=== PATIENT | female | born 1965 | race Caucasian/White ===

== ENCOUNTER 2018-03-04 12:29 | Inpatient (IN) | payer OTHER ==
[~2018-03-04] VITALS: Ht 160 cm; Wt 49.9 kg
[2018-03-04] MEDS ORDERED: ADULT ASPIRIN R81 MG PO (12:57)
[2018-03-04] MEDS ORDERED: LIPITOR10 MG PO (12:58)
[2018-03-04] MEDS ORDERED: VITAMIN D1000 UNI1 PO (12:58)
[2018-03-04] MEDS ORDERED: NEXIUM40 MG PO (12:59)
[2018-03-04] MEDS ORDERED: ESTRACE2 M3 PO (13:00)
[2018-03-04] MEDS ORDERED: NEURONTIN600 MG PO (13:05)
[2018-03-04] MEDS ORDERED: GLUCOSAMINE HC500 MG PO (13:06)
[2018-03-04] MEDS ORDERED: AMARYL4 MG PO (13:06)
[2018-03-04] MEDS ORDERED: LANTUS100 UNIT/M SUBQ (13:07)
[2018-03-04] MEDS ORDERED: JANUMET XR 1001 EACH PO (13:08)
[2018-03-04] MEDS ORDERED: LISINOPRIL5 MG PO (13:09)
[2018-03-04] MEDS ORDERED: PROGESTERONE100 MG PO (13:10)
[2018-03-04] MEDS ORDERED: ZOLOFT100 MG PO (13:11)
[2018-03-04] MEDS ORDERED: ZANAFLEX4 MG PO (13:12)
[2018-03-04 17:00] VITALS: BP 114/69
[2018-03-04] MEDS ORDERED: NOVOLOG100 UNIT/1 SUBQ (17:51)
[2018-03-04 20:00] VITALS: BP 134/65
[2018-03-05 04:41] LABS: HEMATOCRIT 33.2 % (37.0-47.0); HEMOGLOBIN 10.6 gm/dL (12.0-15.0); MCH 24.4 pg (26.0-34.0); MPV 7.7 fl. (7.2-11.1); RBC 4.37 mil/uL (4.20-5.00); RDW-CV 17.4 % (10.5-14.5); WBC 9.2 thou/uL (4.0-11.0)
[2018-03-05 04:52] LABS: CALCIUM 9.7 mg/dL (8.5-10.1); CREATININE 0.7 mg/dL (0.6-1.3); POTASSIUM 4.9 mmol/L (3.5-5.1)
[2018-03-05 08:00] VITALS: BP 119/70
[2018-03-05 20:30] VITALS: BP 128/74
[2018-03-06 08:12] VITALS: BP 109/65
[2018-03-06 20:45] VITALS: BP 108/64
[2018-03-07 07:50] VITALS: BP 105/66
[2018-03-07 20:11] VITALS: BP 119/69
[2018-03-08 08:09] VITALS: BP 107/65
[2018-03-08 20:14] VITALS: BP 115/76
[2018-03-09 07:58] VITALS: BP 122/79
[2018-03-09 19:30] VITALS: BP 110/70
[2018-03-10 08:00] VITALS: BP 99/55
[2018-03-10 20:39] VITALS: BP 116/72
[2018-03-11 08:00] VITALS: BP 110/65
[2018-03-11 21:22] VITALS: BP 119/74
[2018-03-12 08:00] VITALS: BP 114/67
[2018-03-12 08:10] VITALS: BP 114/67
[2018-03-12 13:25] LABS: URINE BILIRUBIN NEGATIVE (Negative); URINE BLOOD 1+ (Negative); URINE CLARITY CLOUDY; URINE COLOR YELLOW; URINE GLUCOSE-RANDOM NEGATIVE (Negative); URINE KETONES NEGATIVE (Negative); URINE NITRITE-REFLEX NEGATIVE (Negative); URINE PROTEIN TRACE (Negative); URINE UROBILINOGEN 0.2 E.U./dl (0.2-1.0)
[2018-03-12 13:28] LABS: URINE LEUKOCYTES-REFLEX 3+ (Negative)
[2018-03-12 13:39] LABS: BACTERIA-REFLEX 1-9 Few /HPF (None Seen); CASTS None Seen /LPF (None Seen); MUCUS 0-3 Light strn/LPF (None Seen); SQUAMOUS 4-10 Moderate /LPF (0-3); URINE WBC-REFLEX >25 Many /HPF (0-5)
[2018-03-12 13:40] LABS: CRYSTALS None Seen /LPF (None Seen)
[2018-03-12 20:38] VITALS: BP 105/64
[2018-03-13 07:30] VITALS: BP 101/41
[2018-03-13 18:30] VITALS: BP 131/76
[2018-03-13 20:00] VITALS: BP 126/81
[2018-03-14 07:30] VITALS: BP 112/64
[2018-03-14 20:33] VITALS: BP 120/72
[2018-03-15 08:19] VITALS: BP 137/83
[2018-03-15 20:27] VITALS: BP 105/71
[2018-03-16 08:14] VITALS: BP 116/62
[2018-03-16 19:49] VITALS: BP 112/59
[2018-03-17 08:02] VITALS: BP 119/59
[2018-03-17 19:30] VITALS: BP 108/64
[2018-03-18 07:51] VITALS: BP 105/56
[2018-03-18 19:30] VITALS: BP 118/76
[2018-03-19 08:32] VITALS: BP 134/68
[2018-03-19 20:24] VITALS: BP 112/70
[2018-03-20 07:44] VITALS: BP 111/63
[2018-03-20 08:13] VITALS: BP 111/63
[2018-03-20 20:35] VITALS: BP 114/67
[2018-03-21 08:26] VITALS: BP 113/49
[2018-03-21 19:30] VITALS: BP 129/72
[2018-03-22 08:05] VITALS: BP 108/56
[2018-03-22 13:05] LABS: URINE BILIRUBIN NEGATIVE (Negative); URINE BLOOD NEGATIVE (Negative); URINE CLARITY CLEAR; URINE COLOR YELLOW; URINE GLUCOSE-RANDOM NEGATIVE (Negative); URINE KETONES NEGATIVE (Negative); URINE LEUKOCYTES-REFLEX NEGATIVE (Negative); URINE NITRITE-REFLEX NEGATIVE (Negative); URINE PROTEIN NEGATIVE (Negative); URINE SPECIFIC GRAVITY <= 1.005 (1.005-1.030); URINE UROBILINOGEN 0.2 E.U./dl (0.2-1.0)
[2018-03-22 19:30] VITALS: BP 108/65
[2018-03-23 07:54] VITALS: BP 113/68
[2018-03-23 15:40] VITALS: BP 113/68
[2018-03-23 19:58] VITALS: BP 135/72
[2018-03-23 22:56] VITALS: BP 113/68
[2018-03-23] MEDS ORDERED: METFORMIN HCL500 M1 PO (23:11)
[2018-03-23] MEDS ORDERED: OXYBUTYNIN 5 MG5 M2 PO (23:12)
[2018-03-24 07:59] VITALS: BP 120/49
[2018-03-24 08:47] VITALS: BP 120/49
--- NOTE | 2018-04-14 11:20 | PLAN ---
[address] [address] REHAB UNIT PLAN OF CARE Name: BENNY CHAPARRO Room: [address]#: [id number] Admission: 03/04/18 Attend Phys: Becky Elliott DO Discharge: 03/24/18 Date of : 65 Report #: [id number] THIS REPORT FOR: //name// CC: Becky Elliott Alan Shipman This is a 52-year-old female with relapsing remitting multiple sclerosis. She was experiencing exacerbation status post acute hospitalization starting on 02/23/2018 where she did have uncontrolled blood sugars as well as urinary tract infection. Her previous level of function was modified independent with activities of daily living and current level of function is minimum to moderate assistance of 1-2 depending on therapy, activity and time of day. She does have some ongoing dysphagia with mechanical soft chopped diet, mild impairment of comprehension, social interaction, expression, problem solving and memory. Estimated length of stay is 16-18 days. MEDICAL PROGNOSIS: Fair. REHABILITATION PROGNOSIS: Good. DISCHARGE DISPOSITION: To the home setting where she has an accessible house, 12 steps to enter and a sister that can provide assistance. Physical therapy will see the patient 60-90 minutes per day, 5 days per week, working on upper and lower body strength, balance, coordination, navigation. Occupational therapy will see the patient 60-90 minutes per day, 5 days per week, working on upper and lower body strength, balance, coordination, navigation, bathing, dressing, and toileting. Speech language pathology will work with the patient 60-90 minutes per day, 5 days per week, working on an ongoing dysphagia, advancement of diet if appropriate as well as cognitive impairment and strategies to improve that. This is an overall plan of care, may change from time to time. We will team weekly and make changes to plan of care as needed. <ELECTRONICALLY SIGNED> By: Becky Elliott DO 04/14/18 1120 0928 [id number] Elliott DO /nt
--- NOTE | 2018-04-14 11:20 | H ---
[address] [address] HISTORY AND PHYSICAL Name: BENNY CHAPARRO Room: [address] IN M.R.#: [id number] Admission: 03/04/18 Attend Phys: Becky Elliott DO Discharge: 03/24/18 Date of : 65 Report #: [id number] THIS REPORT FOR: //name// CC: Becky Shipman DATE OF SERVICE: 03/04/2018 HISTORY OF PRESENT ILLNESS: This is a 52-year-old female admitted to inpatient rehabilitation with a history of multiple sclerosis, relapsing remitting who [facility] with nausea, worsening balance, and low-grade fever. She does have chronic weakness and left hemiparesis, but there was worsening with multiple falls over the last 6 months. She is a diabetic. She has been off her MS meds for about a year due to loss of insurance. She was diagnosed with urinary tract infection. There has been no significant changes since the preadmission screening. Previous level of function was modified independent to independent with activities of daily living and current level of function is minimum assistance of 1 to 2 depending on therapy, activity, and time of day. She does have ongoing dysphagia and is on mechanical soft chopped diet. She does have mild impairment of comprehension, expression, social interaction, problem solving, and memory. Estimated length of stay is 16 to 18 days with discharge disposition to the home setting where she has an accessible house, 12 steps to enter, and lives with her sister who can provide assistance. PAST MEDICAL HISTORY: Hypertension, hyperlipidemia, GERD; multiple sclerosis, relapsing remitting; low back pain, anxiety, and anemia, postmenopausal hormone replacement therapy, history of hemorrhoids, heart murmur, depression, uncontrolled diabetes with random glucose of 170, frequent falls, spastic left hemiparesis, fatigue, acute urinary tract infection and cystitis, horizontal diplopia. PAST SURGICAL HISTORY: Left breast biopsy. ALLERGIES: PREDNISONE and LANSOPRAZOLE. MEDICATIONS: Reviewed, reconciled by myself, and are available in the MAR. SOCIAL HISTORY: No tobacco, alcohol or illicit drug use. FAMILY HISTORY: Heart disease. REVIEW OF SYSTEMS: A 14-point review of systems is done today, is negative except as mentioned in HPI. Specifically, no fever, chest pain, shortness of breath, abdominal pain or distention, change in bowel [place] [address] HISTORY AND PHYSICAL Name: SHANKARBENNY J Room: [address]#: [id number] Admission: 03/04/18 Attend Phys: Becky Elliott DO Discharge: 03/24/18 Date of : 65 Report #: [id number] PHYSICAL EXAMINATION: GENERAL: Alert, oriented, in no apparent distress. VITAL SIGNS: Reviewed and are stable. HEENT: Atraumatic, normocephalic. Pupils equal, round, and reactive. The patient does wear glasses. She has no horizontal diplopia. She has left hemiparesis. SKIN: Warm and dry. MUSCULOSKELETAL: No clubbing, cyanosis or edema. ASSESSMENT: 1. Relapsing-remitting multiple sclerosis exacerbation. 2. Recent urinary tract infection. 3. Multiple medical comorbidities requiring acute daily medical care. PLAN: 1. Admission to inpatient rehabilitation. 2. PT, OT, speech, language, case management, nursing, and HIMS to make evaluations and recommendations. 3. Plan of care is pending. 4. We will team her weekly. <ELECTRONICALLY SIGNED> By: Becky Elliott DO 04/14/18 1120 [id number] [id number] Elliott DO /nt
--- NOTE | 2018-05-16 08:16 | D ---
[address] [address] DISCHARGE SUMMARY Name: BENNY CHAPARRO Room: [address] IN M.R.#: [id number] Admission: 03/04/18 Attend Phys: Becky Elliott DO Discharge: 03/24/18 Date of : 65 Report #: [id number] THIS REPORT FOR: //name// CC: Becky Shipman DATE OF SERVICE: 03/24/2018 DISCHARGE DIAGNOSIS: Exacerbation of multiple sclerosis, relapsing, remitting with ongoing debility. DISCHARGE DISPOSITION: Home with her sister with home health, PT, OT, nursing and case management. She will follow with her neurologist in 2-4 weeks, her primary care physician within one week. Notifications for physician were given. MEDICATIONS: Reconciled by myself. Prescriptions needed were given for one month's time. DISCHARGE PHYSICAL EXAMINATION: GENERAL: Alert, oriented, in no apparent distress. SKIN: Warm and dry. No rashes or lesions noted. <ELECTRONICALLY SIGNED> By: Becky Elliott DO 05/16/18 0816 [id number] Elliott DO /nt
== END 2018-03-24 15:04 | disposition home health service (06) | DRG 59 ==
LOC: M.REH 12:29
PROVIDERS: ADMIT Physical Medicine & Rehabilitation
DX: G35 Multiple sclerosis (principal); N39.0 Urinary tract infection, site not specified; R13.10 Dysphagia, unspecified; G81.94 Hemiplegia, unspecified affecting left nondominant side; E11.9 Type 2 diabetes mellitus without complications; I10 Essential (primary) hypertension; E78.5 Hyperlipidemia, unspecified; K21.9 Gastro-esophageal reflux disease without esophagitis; F41.9 Anxiety disorder, unspecified; F32.9 Major depressive disorder, single episode, unspecified; D50.9 Iron deficiency anemia, unspecified; R53.1 Weakness; Z79.890 Hormone replacement therapy; Z79.82 Long term (current) use of aspirin; Z79.4 Long term (current) use of insulin; Z79.899 Other long term (current) drug therapy; Z88.8 Allergy status to other drugs, medicaments and biological substances; Z82.49 Family history of ischemic heart disease and other diseases of the circulatory system